=== PATIENT | female | born 1970 | race Caucasian/White ===

== ENCOUNTER 2016-07-15 09:36 | Emergency (ER) | payer OTHER ==
[~2016-07-15] VITALS: Ht 160 cm; Wt 89.8 kg
[2016-07-15 12:56] LABS: UA SPECIFIC GRAVITY <=1.005 (1.005-1.035); microscopic required? YES; urine erythrocyte NEGATIVE (NEGATIVE)
[2016-07-15 14:09] VITALS: BP 133/80
== END 2016-07-15 14:09 | disposition home or self-care (01) ==
LOC: ED 09:36
PROVIDERS: Emergency Medicine
DX: R10.30 Lower abdominal pain, unspecified (principal); Z79.899 Other long term (current) drug therapy

== ENCOUNTER 2016-11-18 15:10 | Emergency (ER) | payer MEDICAID ==
[2016-11-18 17:47] VITALS: BP 147/98
== END 2016-11-18 18:00 | disposition home or self-care (01) ==
LOC: ED 15:10
DX: N39.0 Urinary tract infection, site not specified (principal)

== ENCOUNTER 2016-12-20 18:37 | Emergency (ER) | payer MEDICAID ==
[~2016-12-20] VITALS: Ht 160 cm; Wt 88.5 kg
[2016-12-20 20:22] VITALS: BP 146/98
== END 2016-12-20 20:22 | disposition home or self-care (01) ==
LOC: ED 18:37
DX: H60.92 Unspecified otitis externa, left ear (principal)

== ENCOUNTER 2017-04-27 18:15 | Emergency (ER) | payer OTHER ==
[~2017-04-27] VITALS: Ht 160 cm; Wt 89.8 kg
[2017-04-27 18:30] VITALS: BP 145/92; Ht 160 cm; Wt 89.8 kg
== END 2017-04-27 20:06 | disposition home or self-care (01) ==
LOC: ED 18:15
DX: H11.32 Conjunctival hemorrhage, left eye (principal)

== ENCOUNTER 2017-11-01 15:54 | Emergency (ER) | payer OTHER ==
[~2017-11-01] VITALS: Ht 157.5 cm; Wt 91.6 kg
[2017-11-01 15:59] VITALS: Ht 157.5 cm; Wt 91.6 kg
[2017-11-01 16:52] LABS: CALCIUM 8.6 mg/dL (8.5-10.1); CARBON DIOXIDE 30.1 mmol/L (21-32); CHLORIDE SERUM 106 mmol/L (98-107); CREATININE SERUM 0.7 mg/dL (0.6-1.0); GFR1 > 60 mL/min; GLUCOSE SERUM 99 mg/dL (74-106); POTASSIUM SERUM 3.5 mmol/L (3.5-5.1); SODIUM SERUM 143 mmol/L (136-145)
[2017-11-01 16:57] LABS: ALBUMIN 3.4 g/dL (3.4-5.0); ALKALINE PHOSPHATASE 63 U/L (46-116); ALT/SGPT 26 U/L (14-59); AST/SGOT 15 U/L (15-37); BILIRUBIN TOTAL 0.54 mg/dL (0.20-1.00); TOTAL PROTEIN, SERUM 7.2 g/dL (6.4-8.2)
[2017-11-01 17:03] LABS: BASOPHIL % 0.5 % (0-2); PLATELET COUNT 248 x10^3mcL (130-400); RED CELL DISTRIBUTION WIDTH 14.4 % (11.5-14.5)
[2017-11-01 18:04] VITALS: BP 133/78
== END 2017-11-01 18:05 | disposition home or self-care (01) ==
LOC: ED 15:54
PROVIDERS: Emergency Medicine
DX: M79.662 Pain in left lower leg (principal)
CPT/HCPCS: 36415; 85378; Q0092

== ENCOUNTER 2018-01-20 14:38 | Emergency (ER) | payer OTHER ==
[~2018-01-20] VITALS: Ht 160 cm; Wt 93.4 kg
[2018-01-20 14:42] VITALS: Ht 160 cm; Wt 93.4 kg
[2018-01-20 15:40] VITALS: BP 130/80
== END 2018-01-20 15:40 | disposition home or self-care (01) ==
LOC: ED 14:38
DX: S20.219A Contusion of unspecified front wall of thorax, initial encounter (principal); S50.02XA Contusion of left elbow, initial encounter; M79.605 Pain in left leg; W10.8XXA Fall (on) (from) other stairs and steps, initial encounter; Y93.89 Activity, other specified; Y92.89 Other specified places as the place of occurrence of the external cause; Y99.8 Other external cause status
CPT/HCPCS: Q0092

== ENCOUNTER 2018-06-29 16:11 | Emergency (ER) | payer OTHER ==
[~2018-06-29] VITALS: Ht 160 cm; Wt 96.6 kg
[2018-06-29 16:36] VITALS: Ht 160 cm; Wt 96.6 kg
[2018-06-29 17:57] VITALS: BP 140/89
== END 2018-06-29 17:57 | disposition home or self-care (01) ==
LOC: ED 16:11
DX: J11.1 Influenza due to unidentified influenza virus with other respiratory manifestations (principal); Z90.49 Acquired absence of other specified parts of digestive tract

== ENCOUNTER 2018-09-22 09:48 | Emergency (ER) | payer OTHER ==
[~2018-09-22] VITALS: Ht 160 cm; Wt 98.0 kg
[2018-09-22 09:51] VITALS: Ht 160 cm; Wt 98.0 kg
[2018-09-22 11:00] LABS: BASOPHIL % 0.1 % (0-2); PLATELET COUNT 229 x10^3mcL (130-400); RED CELL DISTRIBUTION WIDTH 14.5 % (11.5-14.5)
[2018-09-22 11:09] LABS: CALCIUM 9.1 mg/dL (8.5-10.1); CARBON DIOXIDE 26.1 mmol/L (21-32); CHLORIDE SERUM 105 mmol/L (98-107); CREATININE SERUM 0.5 mg/dL (0.6-1.0); GFR1 > 60 mL/min; GLUCOSE SERUM 100 mg/dL (74-106); POTASSIUM SERUM 3.9 mmol/L (3.5-5.1); SODIUM SERUM 139 mmol/L (136-145)
[2018-09-22 11:13] LABS: ALBUMIN 3.5 g/dL (3.4-5.0); ALKALINE PHOSPHATASE 71 U/L (46-116); ALT/SGPT 29 U/L (14-59); AST/SGOT 12 U/L (15-37); BILIRUBIN TOTAL 0.95 mg/dL (0.20-1.00); LIPASE 64 IU/L (73-393); TOTAL PROTEIN, SERUM 7.6 g/dL (6.4-8.2)
[2018-09-22 11:14] LABS: microscopic required? NO
[2018-09-22 11:44] LABS: UA SPECIFIC GRAVITY >=1.030 (1.005-1.035); urine erythrocyte NEGATIVE (NEGATIVE)
[2018-09-22 11:45] LABS: AMPHETAMINE QUAL UR NONE DETECTED (See below)
[2018-09-22 12:49] VITALS: BP 148/81
== END 2018-09-22 12:49 | disposition home or self-care (01) ==
LOC: ED 09:48
PROVIDERS: Emergency Medicine
DX: R10.13 Epigastric pain (principal); R11.2 Nausea with vomiting, unspecified; E66.9 Obesity, unspecified; I10 Essential (primary) hypertension; Z68.38 Body mass index [BMI] 38.0-38.9, adult; Z90.49 Acquired absence of other specified parts of digestive tract
CPT/HCPCS: J1885; J2405; J3490; J7030

== ENCOUNTER 2018-12-18 09:47 | Emergency (ER) | payer OTHER ==
[~2018-12-18] VITALS: Ht 152.4 cm; Wt 70.8 kg
[2018-12-18 10:30] VITALS: Ht 152.4 cm; Wt 70.8 kg
[2018-12-18 11:04] VITALS: BP 127/67
== END 2018-12-18 11:04 | disposition home or self-care (01) ==
LOC: ED 09:47
DX: H65.93 Unspecified nonsuppurative otitis media, bilateral (principal); H10.11 Acute atopic conjunctivitis, right eye; J30.9 Allergic rhinitis, unspecified; Z90.49 Acquired absence of other specified parts of digestive tract

== ENCOUNTER 2019-04-22 11:19 | Emergency (ER) | payer OTHER ==
[~2019-04-22] VITALS: Ht 160 cm; Wt 99.3 kg
[2019-04-22 11:36] VITALS: Ht 160 cm; Wt 99.3 kg
[2019-04-22 12:05] LABS: BASOPHIL % 0.7 % (0-2); PLATELET COUNT 253 x10^3mcL (130-400); RED CELL DISTRIBUTION WIDTH 14.1 % (11.5-14.5)
[2019-04-22 12:21] LABS: ALBUMIN 3.6 g/dL (3.4-5.0); CARBON DIOXIDE 27.8 mmol/L (21-32); CHLORIDE SERUM 105 mmol/L (98-107); CREATININE SERUM 0.6 mg/dL (0.6-1.0); GFR1 > 60 mL/min; GLUCOSE SERUM 105 mg/dL (74-106); POTASSIUM SERUM 4.4 mmol/L (3.5-5.1); SODIUM SERUM 142 mmol/L (136-145); TOTAL PROTEIN, SERUM 7.9 g/dL (6.4-8.2)
[2019-04-22 12:22] LABS: ALKALINE PHOSPHATASE 77 U/L (46-116); ALT/SGPT 45 U/L (14-59); AST/SGOT 24 U/L (15-37); BILIRUBIN TOTAL 0.7 mg/dL (0.20-1.00); CALCIUM 9.2 mg/dL (8.5-10.1)
[2019-04-22 13:28] VITALS: BP 131/58
== END 2019-04-22 13:15 | disposition home or self-care (01) ==
LOC: ED 11:19
PROVIDERS: Emergency Medicine
DX: R42 Dizziness and giddiness (principal); R11.0 Nausea; Z90.49 Acquired absence of other specified parts of digestive tract
CPT/HCPCS: 36415; J8597

== ENCOUNTER 2019-05-28 17:51 | Emergency (ER) | payer OTHER ==
[~2019-05-28] VITALS: Ht 162.6 cm; Wt 98.0 kg
[2019-05-28 18:10] VITALS: Ht 162.6 cm; Wt 98.0 kg
[2019-05-28 19:23] LABS: BASOPHIL % 0.4 % (0-2); PLATELET COUNT 269 x10^3mcL (130-400); RED CELL DISTRIBUTION WIDTH 13.8 % (11.5-14.5)
[2019-05-28 19:34] LABS: CALCIUM 8.7 mg/dL (8.5-10.1); CARBON DIOXIDE 30.7 mmol/L (21-32); CHLORIDE SERUM 105 mmol/L (98-107); CREATININE SERUM 0.7 mg/dL (0.6-1.0); GFR1 > 60 mL/min; GLUCOSE SERUM 98 mg/dL (74-106); POTASSIUM SERUM 4.2 mmol/L (3.5-5.1); SODIUM SERUM 141 mmol/L (136-145)
[2019-05-28 19:43] LABS: ALBUMIN 3.6 g/dL (3.4-5.0); ALKALINE PHOSPHATASE 72 U/L (46-116); ALT/SGPT 38 U/L (14-59); AST/SGOT 23 U/L (15-37); BILIRUBIN TOTAL 0.46 mg/dL (0.20-1.00); LIPASE 99 IU/L (73-393); TOTAL PROTEIN, SERUM 7.6 g/dL (6.4-8.2)
[2019-05-28 22:57] VITALS: BP 132/93
== END 2019-05-28 22:57 | disposition home or self-care (01) ==
LOC: ED 17:51
PROVIDERS: Emergency Medicine
DX: R42 Dizziness and giddiness (principal); T36.3X5A Adverse effect of macrolides, initial encounter; J40 Bronchitis, not specified as acute or chronic; H66.92 Otitis media, unspecified, left ear; Z90.49 Acquired absence of other specified parts of digestive tract; Y92.89 Other specified places as the place of occurrence of the external cause
CPT/HCPCS: 36415

== ENCOUNTER 2019-09-01 16:56 | Emergency (ER) | payer OTHER ==
[~2019-09-01] VITALS: Ht 157.5 cm; Wt 83.0 kg
[2019-09-01 17:08] VITALS: Ht 157.5 cm; Wt 83.0 kg
[2019-09-01 18:38] LABS: BASOPHIL % 0.5 % (0-2); PLATELET COUNT 198 x10^3mcL (130-400); RED CELL DISTRIBUTION WIDTH 15.3 % (11.5-14.5)
[2019-09-01 18:53] LABS: CALCIUM 8.7 mg/dL (8.5-10.1); CARBON DIOXIDE 26.4 mmol/L (21-32); CHLORIDE SERUM 105 mmol/L (98-107); CREATININE SERUM 0.6 mg/dL (0.6-1.0); GFR1 > 60 mL/min; GLUCOSE SERUM 96 mg/dL (74-106); POTASSIUM SERUM 3.6 mmol/L (3.5-5.1); SODIUM SERUM 143 mmol/L (136-145)
[2019-09-01 18:56] LABS: ALBUMIN 3.5 g/dL (3.4-5.0); ALKALINE PHOSPHATASE 73 U/L (46-116); ALT/SGPT 61 U/L (14-59); AMYLASE 37 U/L (25-115); AST/SGOT 31 U/L (15-37); BILIRUBIN TOTAL 0.9 mg/dL (0.20-1.00); LIPASE 83 IU/L (73-393); TOTAL PROTEIN, SERUM 7.2 g/dL (6.4-8.2)
[2019-09-01 20:13] VITALS: BP 151/96
== END 2019-09-01 20:13 | disposition home or self-care (01) ==
LOC: ED 16:56
PROVIDERS: Specialist
DX: R10.13 Epigastric pain (principal); R51 Headache; Z90.49 Acquired absence of other specified parts of digestive tract
CPT/HCPCS: 36415; J1885; Q0092